=== PATIENT | female | born 1960 | race Asian ===

== ENCOUNTER → 2016-12-17 | Outpatient (CLI) | payer BC ==
[~2016-12-17] MED LIST: VICODIN 5/1 TAB 5/50 PO
--- NOTE | ~2016-12-17 | MY29 ---
[facility] A Service of [facility] RADIOLOGY TEXT RESULTS PATIENT: DALTNO AUGUST LOCATION: [facility] : 58 UNIT #: [id number] AGE: [address]: Karis Bee MD SEX: F ORDER DR: [id number] [facility] [address] [place], [place] [address] [id number] O MR#: [id number] Acc #: [id number] NAME: DALTON AUGUST. : 1960 SEX: F STUDY DATE/TIME: 12/17/2016 13:27 UNIT: [facility] ROOM: STUDY DESCRIPTION: [facility] SCREENING W/ CAD BILAT Attending Physician: Karis Bee M.D. Referring Physician: Karis Bee M.D. Ordering Physician: Karis Bee M.D. Primary Care Physician: Karis Bee M.D. MEDICAL IMAGING REPORT This report is preliminary unless electronic signature is present EXAM Digital screening mammogram 12/17/2016, [facility] HISTORY 56-year-old woman positive family history, mother. Annual screen. COMPARISON Mammograms date to 07/30/2006 with most recent 05/22/2011 FINDINGS Digital imaging of each breast was completed utilizing screening protocol. Review includes FDA-approved CAD device. Breast parenchyma remains dense in each breast. There is no interval occurring mass or interval occurring suspicious microcalcifications. I see no architectural distortion. IMPRESSION Negative mammogram. Annual screening recommended. Patient's over the age of 40 are entered into a reminder system with target due date for the next mammogram. A result letter will be sent to the patient. BIRADS: 1 Negative Dictated by... Kyler Atkinson M.D. THIS IS AN ELECTRONICALLY VERIFIED REPORT Kyler Atkinson M.D. at 12/18/2016 7:14 AM JBB/jorgito TD: 12/17/2016 20:21 [facility] A Service of [facility] RADIOLOGY TEXT RESULTS PATIENT: DALTON AUGUST LOCATION: [facility] : 58 UNIT #: [id number] AGE: [address]: Karis Bee MD SEX: F ORDER DR: JOB #: [id number] MEDICAL IMAGING REPORT Page 1 of 1 COPY
== END | disposition home or self-care (01) ==
LOC: CWCC 12-05 12:15
DX: Z12.31 Encounter for screening mammogram for malignant neoplasm of breast (principal); Z80.3 Family history of malignant neoplasm of breast
CPT/HCPCS: G0202

== ENCOUNTER → 2017-01-03 | Outpatient (CLI) | payer BC ==
--- NOTE | ~2017-01-03 | MR32 ---
[facility] A Service [facility] RADIOLOGY TEXT RESULTS PATIENT: DALTON AUGUST [facility] UNIT #: [id number] AGE: [address]: Casimiro Guzman MD SEX: F ORDER DR: [id number] [place] [id number] [facility] [place], [place] [address] [id number] O MR#: [id number] Acc #: [id number] NAME: DALTON AUGUST : 1960 SEX: F STUDY DATE/TIME: 01/03/2017 8:42 UNIT: [facility] ROOM: STUDY DESCRIPTION: MR Cervical Wo Contrast Attending Physician: Casimiro Guzman M.D. Ordering Physician: Casimiro Guzman M.D. Primary Care Physician: Karis Bee M.D. MRI CENTER REPORT This report is preliminary unless electronic signature is present. EXAM MRI cervical spine without contrast. INDICATION Neck and bilateral shoulder pain for the past year. PROCEDURE Multiplanar, multisequence MR imaging of the cervical spine without contrast COMPARISON None FINDINGS There is mild reversal of the normal cervical lordosis in the upper to mid cervical spine. Multilevel degenerative disc disease. Included posterior fossa structures are unremarkable. No abnormal paravertebral mass. C2-3: No significant central canal narrowing or neural foraminal narrowing. C3-C4: There is a broad-based posterior disc osteophyte. Mild bilateral facet arthrosis. Effacement of the ventral thecal sac, with [id number] central canal narrowing. There is [id number] bilateral neural foraminal narrowing. C4-C5: Broad-based posterior disc osteophyte. Effacing the ventral thecal sac. Moderate central canal narrowing. Mild bilateral facet arthrosis. No significant neural foraminal narrowing. C5-C6: Mild broad-based posterior disc osteophyte with effacement of the ventral thecal sac and mild flattening of the cord. Moderate to moderately severe central canal narrowing. Mild to moderate bilateral [facility] A Service [facility] RADIOLOGY TEXT RESULTS PATIENT: DALTON AUGUST [id number] 58 UNIT #: [id number] AGE: [address]: Casimiro Guzman MD SEX: F ORDER DR: facet arthrosis. Moderate right and moderately severe left neural foraminal narrowing. C6-C7: Broad-based posterior disc osteophyte with effacement of ventral thecal sac, moderate to moderately severe central canal narrowing. Moderate bilateral facet arthrosis. There is severe bilateral neural foraminal narrowing. C7-T1: No central canal or neural foraminal narrowing. IMPRESSION 1. Multilevel degenerative disc disease throughout the cervical spine as detailed above. 2. Broad-based posterior disc osteophytes at C4-5 through C6-7 efface the thecal sac and results in moderate to moderately severe central canal narrowing. 3. Neural foraminal narrowing is most significant on the right and left at C6-C7 related to a combination of degenerative disc disease and facet arthrosis. Dictated by... Miguelito Rosas M.D. THIS IS AN ELECTRONICALLY VERIFIED REPORT Miguelito Rosas M.D. at 01/06/2017 3:00 PM CARLTON/rod TD: 01/05/2017 11:21 JOB #: [id number] MRI CENTER REPORT Page 1 of 1 COPY
--- NOTE | ~2017-01-03 | MR113 ---
[facility] A Service of [facility] RADIOLOGY TEXT RESULTS PATIENT: DALTON AUGUST [facility] 58 UNIT #: [id number] AGE: [address]: Casimiro Guzman MD SEX: F ORDER DR: [id number] [facility] [address] [place], [place] [address] [id number] O MR#: [id number] Acc #: [id number] NAME: DALTON AUGUST : 1960 SEX: F STUDY DATE/TIME: 01/03/2017 9:03 UNIT: [facility] ROOM: STUDY DESCRIPTION: MR Lumbar Wo Contrast Attending Physician: Casimiro Guzman M.D. Ordering Physician: Casimiro Guzman M.D. Primary Care Physician: Karis Bee M.D. MRI CENTER REPORT This report is preliminary unless electronic signature is present. EXAM MRI lumbar spine without contrast INDICATION Lower back and left leg pain and numbness for the past year. PROCEDURE Sagittal and axial T1 and T2-weighted imaging of the lumbar spine without contrast. COMPARISON None FINDINGS Lumbar bodies have normal height. Alignment is preserved. Conus terminates at L1 and has normal caliber and signal intensity. Disc space height is preserved. No abnormal paravertebral mass. L1-L2: No central canal or neural foraminal narrowing. L2-L3: Mild facet arthrosis. No central canal or neural foraminal narrowing. L3-L4: Mild to moderate bilateral facet arthrosis with mild central canal narrowing. No significant neural foraminal narrowing. L4-L5: Mild circumferential disc bulge with moderate facet arthrosis. Mild to moderate central canal narrowing. Mild bilateral neural foraminal narrowing. L5-S1: Mild broad-based posterior disc bulge with mild to moderate facet arthrosis. Mild central canal narrowing, and mild bilateral neural foraminal narrowing. [facility] A Service of [facility] & [facility] RADIOLOGY TEXT RESULTS PATIENT: DALTON AUGUST [facility] 58 UNIT #: [id number] AGE: [address]: Casimiro Guzman MD SEX: F ORDER DR: IMPRESSION 1. Multilevel degenerative disc disease and facet arthrosis. Severity of the multilevel facet change is greater than the degenerative disc disease. 2. No significant central canal or neural foraminal narrowing in the lumbar spine. There is multilevel mild to moderate central canal narrowing and multilevel mild bilateral neural foraminal narrowing as detailed above. Dictated by... Miguelito Rosas M.D. THIS IS AN ELECTRONICALLY VERIFIED REPORT Miguelito Rosas M.D. at 01/06/2017 3:00 PM CARLTON/ara TD: 01/05/2017 11:02 JOB #: [id number] MRI CENTER REPORT Page 1 of 1 COPY
== END | disposition home or self-care (01) ==
LOC: CMRI 12-23 17:00
DX: M51.16 Intervertebral disc disorders with radiculopathy, lumbar region (principal); M50.10 Cervical disc disorder with radiculopathy, unspecified cervical region; M48.02 Spinal stenosis, cervical region; M99.81 Other biomechanical lesions of cervical region; M25.78 Osteophyte, vertebrae; M46.92 Unspecified inflammatory spondylopathy, cervical region
CPT/HCPCS: 72141; 72148